=== PATIENT | female | born 1965 | race Caucasian/White ===

== ENCOUNTER 2016-12-11 16:44 | Emergency (ER) | payer OTHER ==
[~2016-12-11] VITALS: Ht 157.5 cm; Wt 54.4 kg
--- NOTE | ~2016-12-11 | EKG ---
PATIENT: TOÑA KEYS UNIT #: [id number] Ventricular Rate: 80 BPM Atrial Rate: 80 BPM P-R Interval: 122 ms QRS Duration: 92 ms Q-T Interval: 386 ms QTC Calculation(Bezet): 445 ms P Throckmorton: 34 degrees Calculated R Throckmorton: 46 degrees Calculated T Throckmorton: 50 degrees Diagnosis Line: Normal sinus rhythm Diagnosis Line: Nonspecific T wave abnormality Diagnosis Line: Abnormal ECG Diagnosis Line: When compared with ECG of 13-AUG-2013 18:25, Diagnosis Line: No significant change was found Diagnosis Line: Confirmed by SONYA HUITRON MD ([id number]) on Diagnosis Line: 12/12/2016 11:57:36 AM INTERPRETING MD: ELANA PASCAL
--- NOTE | ~2016-12-11 | CR63 ---
[facility] A Service of [facility] & [facility] RADIOLOGY TEXT RESULTS PATIENT: TOÑA KEYS LOCATION: CFTX : 67 UNIT #: [id number] AGE: [address]: Ingrid Scanlon APRN SEX: F ORDER DR: [id number] [facility] [address] [place], [place] [address] [id number] MR#: [id number] Acc #: [id number] NAME: TOÑA KEYS. : 1965 SEX: F STUDY DATE/TIME: 12/11/2016 18:11 UNIT: [facility] ROOM: STUDY DESCRIPTION: CR Chest 2 View Attending Physician: Ingrid Scanlon A.P.R.N. Ordering Physician: Ed Sammy Santos M.D. Primary Care Physician: No Primary Care Physician MEDICAL IMAGING REPORT This report is preliminary unless electronic signature is present EXAM Chest PA and lateral 12/11/2016. HISTORY Bilateral chest and rib pain, shortness of breath and cough for 1 week. PA and lateral examination of the chest upright shows a good expansion of the parenchyma with a normal distribution of the pulmonary vascularity. There is no indication of congestion, effusion, infiltrate, tumor, or nodular density. The pleural reflections and diaphragmatic contours are normal. The cardiac silhouette and mediastinal anatomy is within normal limits. IMPRESSION Normal chest. Dictated by... Jose Larios M.D. THIS IS AN ELECTRONICALLY VERIFIED REPORT Jose Larios M.D. at 12/12/2016 2:18 PM KRT/fiordaliza TD: 12/12/2016 07:59 JOB #: [id number] MEDICAL IMAGING REPORT Page 1 of 1 COPY
[~2016-12-11 16:44] MED LIST: ALBUTEROL17 GM INH; ALPRAZOLAM PO; AMITRYPTYLINE PO; AMOXICILLIN500 M1 PO; ASACOL400 MG PO; AUGMENTIN PO; AZITHROMYCIN250 MG PO; BACLOFEN10 MG PO; BENADRYL PO; CLARITIN10 MG PO; DARVOCET-N 1001 TAB PO; DICLOFENAC PO; DICYCLOMINE HCL20 MG PO; FLAGYL PO; FLEXERIL PO; FLEXERIL10 MG PO; GLUCOTROL PO; GNP B-COMPLEX1 EACH PO; HYDROCODON-ACE1 EAC7 PO; KLONOPIN PO; LOMOTIL TABLET1 TAB PO; LORTAB 10-5001 EACH; LORTAB 10-5001 EACH PO; LORTAB 5/500 TA1 TA1 PO; LORTAB 5/500 TA1 TA2 PO; MELOXICAM15 MG PO; NEURONTIN PO; NEURONTIN800 MG PO; NILSTAT1 ML TOP; OMEPRAZOLE40 M1 PO; PEN-VEE K PO; PHENERGAN PO; PHENERGAN25 MG PO; PREDNISONE PO; PRENATAL PO; PRILOSEC PO; PRINIVIL10 MG PO; QVAR7.3 GM INH; ROBAXIN500 MG PO; SMZ/TMP PO; SPIRIVA18 MCG INH; STRIBILD TABLE1 EACH PO; TYLENOL #3 PO; ULTRAM PO; VENTOLIN5 MG/ML NEB; VICODIN PO; ZOVIRAX800 MG PO; [UNRECOGNIZED DRUG - OTHER] PO
== END 2016-12-11 19:35 | disposition home or self-care (01) ==
LOC: CFTX 16:44 → CED 16:44 → CFTX 17:40
DX: J45.22 Mild intermittent asthma with status asthmaticus (principal); R50.9 Fever, unspecified; R42 Dizziness and giddiness; F17.210 Nicotine dependence, cigarettes, uncomplicated; Z90.710 Acquired absence of both cervix and uterus; Z90.722 Acquired absence of ovaries, bilateral; Z88.8 Allergy status to other drugs, medicaments and biological substances
CPT/HCPCS: 71020; 93005; 94640; 99284